=== PATIENT | male | born 1935 ===

== ENCOUNTER 2018-05-24 10:33 | Emergency (ER) | payer BC, MEDICARE ==
[2018-05-24 10:49] VITALS: BMI 34.4
--- NOTE | 2018-05-24 11:15 | ED PDOC ---
HPI: General Adult Time Seen by Provider: 05/24/18 10:50 Chief Complaint (Provider): Choking Episode History Per: Patient, EMS History/Exam Limitations: no limitations Onset/Duration Of Symptoms: Other (prior to arrival) Current Symptoms Are (Timing): Gone Now Additional Complaint(s): 82 year old male with a past medial history of sepsis, HTN, diabetes, seizures, and s/p cardiac arrest brought by EMS after choking on pill prior to arrival. Patient was subsequently able to swallow. He denies any shortness of breath, chest pain, or vomiting. Past Medical History Reviewed: Historical Data, Nursing Documentation, Vital Signs Vital Signs: Last Vital Signs Temp 98.1 F 05/24/18 11:45 Pulse 80 05/24/18 11:12 Resp 18 05/24/18 11:12 BP 147/62 05/24/18 11:12 Pulse Ox 98 05/24/18 11:16 - Medical History PMH: Arthritis, Diabetes, HTN, Seizures - Surgical History Surgical History: CABG - Family History Family History: States: Unknown Family Hx - Home Medications Home Medications: Ambulatory Orders Medication Instructions Recorded Aspirin [Ecotrin] 81 mg PO DAILY 02/15/18 Clopidogrel [Plavix] 75 mg PO DAILY 02/15/18 Cyclobenzaprine [Flexeril] 10 mg PO BID 02/15/18 Divalproex [Depakote Sprinkles] 125 mg PO DAILY 02/15/18 Icosapent Ethyl [Vascepa] 2 gm PO BID 02/15/18 Linagliptin/Metformin HCl 1 tab PO BID 02/15/18 [Jentadueto 2.5 mg-500 mg Tab] Meloxicam [Mobic] 15 mg PO DAILY 02/15/18 Nebivolol [Bystolic] 5 mg PO DAILY 02/15/18 Olmesartan Medoxomil [Benicar] 20 mg PO DAILY 02/15/18 Rosuvastatin Calcium [Crestor] 10 mg PO HS 02/15/18 Tamsulosin [Flomax] 0.4 mg PO DAILY 02/15/18 Albuterol/Ipratropium [Duoneb 3 3 ml INH RQ4 PRN neb 02/27/18 mg/0.5 mg (3 ml) UD] QUEtiapine [Seroquel] 25 mg PO HS tab 02/27/18 - Allergies Allergies/Adverse Reactions: Allergies Allergy/AdvReac Type Severity Reaction Status Date / Time No Known Allergies Allergy Verified 02/15/18 19:23 Review of Systems ROS Statement: Except As Marked, All Systems Reviewed And Found Negative ENT: Positive for: Other (resolved choking episode) Cardiovascular: Negative for: Chest Pain Respiratory: Negative for: Shortness of Breath Gastrointestinal: Negative for: Vomiting Physical Exam - Reviewed Nursing Documentation Reviewed: Yes Vital Signs Reviewed: Yes - Physical Exam Appears: Positive for: Non-toxic, No Acute Distress Head Exam: Positive for: ATRAUMATIC, NORMAL INSPECTION, NORMOCEPHALIC Skin: Positive for: Normal Color, Warm, Dry. Negative for: Rash Eye Exam: Positive for: EOMI, Normal appearance, PERRL ENT: Positive for: Normal ENT Inspection, Pharynx Is (clear) Neck: Positive for: Normal, Painless ROM, Supple Cardiovascular/Chest: Positive for: Regular Rate, Rhythm. Negative for: Murmur Respiratory: Positive for: Normal Breath Sounds. Negative for: Respiratory Distress Gastrointestinal/Abdominal: Positive for: Normal Exam, Soft. Negative for: Tenderness Back: Positive for: Normal Inspection. Negative for: L CVA Tenderness, R CVA Tenderness, Vertebral Tenderness Extremity: Positive for: Normal ROM. Negative for: Deformity Neurologic/Psych: Positive for: Alert, Oriented (x3). Negative for: Motor/ Sensory Deficits - ECG O2 Sat by Pulse Oximetry: 98 (RA) Pulse Ox Interpretation: Normal Medical Decision Making Medical Decision Makin:05 Plan: -CXR -Reevaluation Scribe Attestation: Documented by Alonso Diaz, acting as a scribe for Luis Miguel Jewell MD. Provider Scribe Attestation: All medical record entries made by the Scribe were at my direction and personally dictated by me. I have reviewed the chart and agree that the record accurately reflects my personal performance of the history, physical exam, medical decision making, and the department course for this patient. I have also personally directed, reviewed, and agree with the discharge instructions and disposition. Disposition - Clinical Impression Clinical Impression: Aspiration into respiratory tract - Patient ED Disposition Is Patient to be Admitted: No Counseled Patient/Family Regarding: Studies Performed, Diagnosis, Need For Followup - Disposition Disposition: Routine/Home Disposition Time: 12:32 Condition: FAIR Instructions: Choking Print Language: TELUGU
--- NOTE | 2018-05-24 11:49 | RAD ---
Date of service: 05/24/2018 HISTORY: sob COMPARISON: No prior. TECHNIQUE: Chest PA and lateral FINDINGS: LUNGS: No active pulmonary disease. PLEURA: No significant pleural effusion identified. No pneumothorax apparent. CARDIOVASCULAR: Left subclavian access pacemaker with leads terminating in the right atrium and right ventricle. Prior sternotomy with sternal wires and surgical clips in place. Atherosclerotic aortic calcifications. Cardiomediastinal silhouette enlarged. OSSEOUS STRUCTURES: Degenerative changes. VISUALIZED UPPER ABDOMEN: Surgical material in the anterior upper abdomen. OTHER FINDINGS: None. IMPRESSION: No active disease.
[2018-05-24 12:41] VITALS: BP 151/70; PULSE 73; RESP 16; TEMP 98; O2SAT 100
== END 2018-05-24 12:41 | disposition home or self-care (01) ==
LOC: H.ER 10:33
DX: T17.890A Other foreign object in other parts of respiratory tract causing asphyxiation, initial encounter (principal); I10 Essential (primary) hypertension; E11.9 Type 2 diabetes mellitus without complications; Z79.82 Long term (current) use of aspirin; Z95.1 Presence of aortocoronary bypass graft; Z86.74 Personal history of sudden cardiac arrest; R56.9 Unspecified convulsions